=== PATIENT | female | born 1990 | race African-American/Black ===

== ENCOUNTER 2017-03-11 18:46 | Emergency (ER) | payer BC ==
[~2017-03-11] VITALS: Ht 170.2 cm; Wt 61.0 kg
[~2017-03-11 18:46] MED LIST: CALC-84 PO; FERR-55 PO; NITR-58 PO; PREN-39 PO; PREN1TAB17 PO
[2017-03-11 18:51] VITALS: Ht 170.2 cm; Wt 61.0 kg
--- NOTE | 2017-03-11 18:59 | QN ---
Documentation Comment This 26-year-old female presents here in emergency department for check, patient states that she feels nauseous, weak, she states that these are her symptoms of being , she states that she did a test and was negative, so once be checked for blood work, patient also wants a urine checked , checked for urinary tract infection. Patient does not have any symptoms of dysuria at this time. Patient does not have hematuria. Patient is stable at this time, medical screening initially done [facility], patient is further testing, will wait for ER-2 bed. FABRICIO MILLER NP March 11, 2017 18:59
[2017-03-11] MEDS ORDERED: ONDANSETRON (ODT) 4 MG TAB ODT STA (20:18)
--- NOTE | 2017-03-11 20:18 | ERD ---
ER Documentation Chief Complaint Date/Time DATE: 03/11/17 TIME: 20:15 Chief Complaint "i slept until 4pm today i usually sleep till 12noon so that not normal" HPI Pleasant 26-year-old female presents to the emergency department along with her child for evaluation. Patient reports that she is been fatigued and sleeping late, has not had a menstrual period since November. Patient reports nausea, denies dysuria, hematuria, or vaginal discharge. Patient reports that she has taken home test which have been negative. Patient is here today for screening. Teaching provided that she would have a urine dip done that the emergency department does not routinely do blood testing that she would need to follow-up with her primary injection operator. Patient verbalizes understanding ROS All systems reviewed and are negative except as per history of present illness. Medications Home Meds Active Scripts Nitrofurantoin Monohyd Macrocr* (Macrobid*) 100 Mg Capsr, 100 MG PO HS for 7 Days, CAP Prov:SCOTT JACKSON 03/11/17 Nitrofurantoin Monohyd Macrocr* (Macrobid*) 100 Mg Capsr, 100 MG PO BID for 7 Days Prov:VIVIEN LINARES 09/14/15 Reported Medications Vits W-Ca,Fe,Fa(<1MG) ( Vitamins) 1 Tab Tablet, 1 TAB PO DAILY for 7 Days 02/12/15 Calcium Carbonate-Vitamin D3 (Calcium 500 + D Tablet) 1 Each Tablet, 1 EACH PO DAILY 06/12/13 Ferrous Sulfate* (Ferrous Sulfate*) 325 Mg Tablet, 325 MG PO BID 06/12/13 Vit-Iron Fumarate-FA ( Tablet) 1 Each Tablet, 1 EACH PO DAILY 06/12/13 Allergies Allergies: Coded Allergies: No Known Allergy (Unverified , 09/14/15) PMhx/Soc History of Surgery: Yes (D&C) Anesthesia Reaction: No Hx Neurological Disorder: No Hx Respiratory Disorders: Yes (asthma) Hx Cardiac Disorders: No Hx Psychiatric Problems: No Hx Miscellaneous Medical Probl: No Hx Alcohol Use: No Hx Substance Use: No Hx Tobacco Use: No Smoking Status: Never smoker Physical Exam Vitals Vital Signs Date Time Temp Pulse Resp B/P Pulse Ox O2 Delivery O2 Flow Rate FiO2 03/11/17 18:51 98.8 78 18 116/69 100 Vitals stable, triage notes reviewed Physical Exam Const: No acute distress Head: Atraumatic Eyes: Normal Conjunctiva, PERRLA, EOMI ENT: Normal External Ears, Nose and Mouth mucous membranes moist. Neck: Full range of motion..~ No meningismus. Resp: Chest rises symmetrically, clear to auscultation bilaterally, no respiratory Cardio: Abd: Soft, non tender, non distended. No CVA tenderness Skin: Back: No midline or flank tenderness Ext: Neur: Awake and alert Psych: Normal Mood and Affect Results 24 hrs Laboratory Tests Test 03/11/17 20:52 Bedside Urine pH (LAB) 6.5 Bedside Urine Protein (LAB) 1+ Bedside Urine Glucose (UA) Negative Bedside Urine Ketones (LAB) Negative Bedside Urine Blood Trace-lysed Bedside Urine Nitrite (LAB) Negative Bedside Urine Leukocyte Esterase (L 1+ Current Medications Medications (Trade) Dose Ordered Sig/Jeremy Route PRN Reason Start Time Stop Time Status Last Admin Dose Admin Ondansetron HCl (Zofran Odt) 4 mg ONCE STAT ODT 03/11/17 20:18 03/11/17 20:20 DC 03/11/17 20:25 Interpretation text Urinalysis positive for evidence of leukocytosis and microscopic hematuria suggestive of infection. Procedures/MDM This pleasant 26-year-old female presents to emergency department with her son who will be seen for unrelated complaint. Patient reports fatigue, amenorrhea, and nausea. Patient has taken home which have been negative. ruled out on urine test. Anorexia, anemia is part of differential and should be addressed in the outpatient setting, patient's urinalysis is positive for leukocytosis and microscopic hematuria suggestive of infection. This is the likely cause of patient's fatigue and abdominal pain. Patient will be treated with Macrobid, and instructed to follow-up with injection operator for amenorrhea. Return to emergency department if symptoms worsen on medication or fever, nausea, dysuria, back pain. I feel the patient is stable for discharge at this time. I have discussed results, examination findings, the treatment plan with the patient and family present prior to discharge. Indications for emergent reevaluation, side effects of medication were also discussed. All questions were answered. Patient verbalizes understanding and agrees with plan of care. Departure Diagnosis: Primary Impression: UTI (urinary tract infection) Urinary tract infection type: site unspecified Hematuria presence: with hematuria Qualified Code: N39.0 - Urinary tract infection with hematuria, site unspecified Condition: Good Patient Instructions: Understanding Urinary Tract Infections (UTIs) Additional Instructions: Thank you for for coming to [facility] for your care today. Please ask your nurse or provider if you have questions about your care today and do not leave until all your questions have been answered. Please use any medications given as directed and follow-up with your doctor (or the doctor you were referred to) in the next 2-3 days. If you do not have a primary care doctor you may follow up at the [facility] (listed below). You may also use motrin and tylenol as needed for fever and/or pain unless instructed otherwise by your provider or nurse. Indications for more urgent follow-up have been discussed, but you may return to the Emergency Department at ANY time for any worrisome or worsening symptoms. If you have abdominal pain, please know that no test or exam you received is perfect and you should follow up within 8 hours for continued pain. If you had any imaging studies today, such as an X-Ray or CT Scan, these studies will be reviewed later by a radiologist. You will be called if there are important findings that were not identified today, so make sure the contact information you provided at registration is correct. If you received any narcotic pain control medicine today, such as Vicodin, Morphine or Dilaudid, your coordination and judgment may be affected for a number of hours. Please do not drive or operate heavy machinery, and you may want someone to assist you at home. If you were given a prescription for narcotic medication, be aware that it is very addictive- use sparingly and only if necessary. SCOTT JACKSON March 11, 2017 20:18
[2017-03-11 20:50] LABS: URINE BLOOD (Dip) POC Trace-lysed (NEGATIVE)
[2017-03-11] MEDS ORDERED: NITR-58 PO (21:57)
== END 2017-03-11 22:08 | disposition home or self-care (01) ==
LOC: FTE 18:46
DX: N39.0 Urinary tract infection, site not specified (principal); J45.909 Unspecified asthma, uncomplicated
CPT/HCPCS: 81003; Z7610; 99283